=== PATIENT | male | born 1940 | race Caucasian/White ===

== ENCOUNTER 2019-02-23 12:26 | Inpatient (IN) ==
[2019-02-23] MEDS ORDERED: Isovue-370 500 ML BOTTLE IVP ONE (12:50)
[2019-02-23] MEDS ORDERED: 0.9 % Sodium Chloride 1,000 ML IVC ONE (13:08)
[2019-02-23] MEDS ORDERED: *HR* FentaNYL (PF) 100 MCG/2 ML VIAL IVP ONE (13:08)
[2019-02-23] MEDS ORDERED: Ondansetron 4 MG/2 ML VIAL IVP ONE (13:08)
[2019-02-23 13:29] LABS: Bilirubin,Urine Moderate (Negative); Blood,Urine Negative (Negative); Clarity,Urine Clear (Clear); Color,Urine Dark Yellow (Yellow); Glucose,Urine (UA) Normal (Normal); Ketones,Urine Negative (Negative); Leukocyte Esterase,Urine Trace (Negative); Nitrite,Urine Negative (Negative); Protein,Urine Trace mg/dL (Neg-Trace); Specific Gravity,Urine 1.019 (1.010-1.025)
[2019-02-23 13:31] LABS: Bacteria,Urine None Seen per hpf (None-Few); Hyaline Casts,Urine None Seen per lpf (None-Few); RBC,Urine 0-3 per hpf (0-3); Squamous Epithelial Cell,Urine Few per lpf (None-Few); WBC,Urine 0-3 per hpf (0-3)
[2019-02-23 13:48] LABS: Basophils % 0.4 %; Eosinophils # 0.1 K/mcL (0.0-0.6); Eosinophils % 1.2 %; Hematocrit 37.1 % (37.5-50.1); Hemoglobin 12.2 g/dL (12.9-16.9); Immature Granulocytes % 0.8 % (0-4); Lymphocytes # 0.8 K/mcL (0.6-4.6); Lymphocytes % 9.1 %; Mean Corpuscular HGB Conc 32.9 g/dL (31.6-35.5); Mean Corpuscular Hemoglobin 28.7 pg (28.0-33.3); Mean Corpuscular Volume 87.3 fL (83.0-100.0); Mean Platelet Volume 11.2 fL (9.4-12.4); Monocytes # 0.6 K/mcL (0.0-1.3); Monocytes % 7.1 %; Neutrophils # 7.2 K/mcL (1.6-8.9); Platelet Count 178 K/mcL (140-400); Red Blood Count 4.25 M/mcL (4.19-5.50); Red Cell Distribution Width 15.9 % (11.5-14.5); Segmented Neutrophils % 81.4 %; White Blood Count 8.9 K/mcL (4.3-11.1)
[2019-02-23 14:15] LABS: Albumin 3.6 g/dL (3.5-5.7); Bilirubin,Direct 4.2 mg/dL (0.0-0.2); Bilirubin,Indirect 2.2 mg/dL (0.0-1.2); Bilirubin,Total 6.4 mg/dL (0.3-1.0); Calcium 9.6 mg/dL (8.6-10.3); Globulin 3.5 g/dL (2.4-3.5); Potassium 3.8 mEq/L (3.5-5.1); Total Protein 7.1 g/dL (6.4-8.9)
--- NOTE | 2019-02-23 14:50 | Emergency Department Note ---
Disposition Clinical Impression: Abdominal pain, Hyperbilirubinemia, Metastatic cancer Disposition: Admitted As Inpatient Condition: Fair Referrals: Tarsha Jacome MD [Primary Care Provider] - Forms: ED Satisfaction Letter, Work/School Release Time of Disposition: 16:22 Abdominal Pain HPI - General Chief Complaint: ED Abdominal Pain Stated Complaint: abd pain Time Seen by Provider: 02/23/19 12:49 Source: patient Mode of arrival: ambulatory Limitations: no limitations Nursing Notes Reviewed: Yes Vital Signs Reviewed: Yes - History of Present Illness Pain Scale: 6 - Related Data Home Medications Medication Instructions Recorded Confirmed Allopurinol [Zyloprim 300 MG] 300 mg PO DAILY 10/11/18 11/16/18 Amiloride/Hydrochlorothiazide 1 tab PO DAILY 10/11/18 11/16/18 [Amiloride HCl-Hctz 5-50 mg Tab] Aspirin 81 mg PO DAILY 10/11/18 11/16/18 Cholecalciferol (Vitamin D3) 2,000 unit PO DAILY 10/11/18 11/16/18 [Vitamin D3] Fluticasone Propionate Nasal 1 spray NS DAILY 10/11/18 11/16/18 [Flonase] Glycerin/Propylene Glycol 1 drop BOTH EYES DAILY PRN 10/11/18 11/16/18 [Artificial Tears Drops] Lisinopril [Zestril] 20 mg PO QPM 10/11/18 11/16/18 Nitroglycerin [Nitrostat] 0.4 mg SL Q5M PRN 10/11/18 11/16/18 HYDROcodone/Acet 5/325 mg [[place] 1 tab PO Q6H PRN 11/16/18 11/16/18 5-325 mg] Previous Rx's Medication Instructions Recorded Atorvastatin [Lipitor] 40 mg PO HS #30 tablet 10/17/18 Carvedilol [Coreg] 6.25 mg PO BIDWM #60 tablet 10/17/18 Famotidine [Pepcid] 20 mg PO BID #60 tablet 10/24/18 Ferrous Sulfate [Iron] 325 mg PO DAILY #30 tablet 11/16/18 Allergies Allergy/AdvReac Type Severity Reaction Status Date / Time adhesive tape Allergy Rash Verified 11/16/18 14:32 Diclofenac [From Arthrotec] Allergy swelling Verified 11/16/18 14:32 diltiazem Allergy See Verified 11/16/18 14:32 Comments Latex, Natural Rubber Allergy SEE COMMENT Verified 11/16/18 14:32 misoprostol [From Arthrotec] Allergy swelling Verified 11/16/18 14:32 nabumetone Allergy See Verified 11/16/18 14:32 Comments NSAIDS (Non-Steroidal Allergy See Verified 11/16/18 14:32 Anti-Inflamma Comments Abdominal Pain PMH - Past Medical History Medical history: Reports: arthritis, cancer, coronary artery disease, DVT, hypertension Male Surgical History: Reports: cancer surgery, other Psychiatric history: Reports: no psych history - Social History Smoking status: Former smoker Alcohol use: Reports: none Drug use: Reports: none Course Vital Signs Temperature 98.1 F 02/23/19 12:36 Pulse Rate 98 02/23/19 12:36 Respiratory Rate 18 02/23/19 12:36 Blood Pressure 144/71 02/23/19 12:36 O2 Sat by Pulse Oximetry 96 02/23/19 12:36 Temperature 98.1 F 02/23/19 13:21 Pulse Rate 80 02/23/19 14:27 Respiratory Rate 18 02/23/19 13:21 Blood Pressure 149/69 02/23/19 14:27 O2 Sat by Pulse Oximetry 100 02/23/19 14:27 Oxygen Delivery Oxygen Delivery Room Air Abdominal Pain - Lab Data Result diagrams: 02/23/19 13:19 02/23/19 13:19 Lab Results 02/23/19 02/23/19 02/23/19 Range/Units 12:54 13:19 13:19 WBC 8.9 (4.3-11.1) K/mcL RBC 4.25 (4.19-5.50) M/mcL Hgb 12.2 L (12.9-16.9) g/dL Hct 37.1 L (37.5-50.1) % MCV 87.3 (83.0-100.0) fL MCH 28.7 (28.0-33.3) pg MCHC 32.9 (31.6-35.5) g/dL RDW 15.9 H (11.5-14.5) % Plt Count 178 (140-400) K/mcL MPV 11.2 (9.4-12.4) fL Immature Gran % 0.8 (0-4) % Seg Neutrophils % 81.4 % Lymphocytes % 9.1 % Monocytes % 7.1 % Eosinophils % 1.2 % Basophils % 0.4 % Neutrophils # 7.2 (1.6-8.9) K/mcL Lymphocytes # 0.8 (0.6-4.6) K/mcL Monocytes # 0.6 (0.0-1.3) K/mcL Eosinophils # 0.1 (0.0-0.6) K/mcL Basophils # 0.0 (0.0-0.2) K/mcL Sodium 133 L (136-145) mEq/L Potassium 3.8 (3.5-5.1) mEq/L Chloride 98 (98-107) mEq/L Carbon Dioxide 27 (23-29) mEq/L BUN 27 H (8-23) mg/dL Creatinine 1.57 H (0.70-1.30) mg/dL Est GFR ( Amer) 52 L (> 60) Est GFR (Non-Af Amer) 43 L (> 60) BUN/Creatinine Ratio 17 (6-26) Glucose 165 H (70-105) mg/dL Calculated Osmolality 285 (280-300) Calcium 9.6 (8.6-10.3) mg/dL Total Bilirubin 6.4 H (0.3-1.0) mg/dL Direct Bilirubin 4.2 H (0.0-0.2) mg/dL Indirect Bilirubin 2.2 H (0.0-1.2) mg/dL AST 169 H (13-39) Units/L ALT 358 H (7-52) Units/L Alkaline Phosphatase 243 H (34-104) Units/L Serum Total Protein 7.1 (6.4-8.9) g/dL Albumin 3.6 (3.5-5.7) g/dL Globulin 3.5 (2.4-3.5) g/dL Albumin/Globulin Ratio 1.0 L (1.1-2.2) Lipase 76 (11-82) Units/L Urine Color Dark Yellow (Yellow) Urine Clarity Clear (Clear) Urine pH 7.0 (5.0-8.0) pH Units Ur Specific [place] 1.019 (1.010-1.025) Urine Protein Trace (Neg-Trace) mg/dL Urine Glucose (UA) Normal (Normal) mg/dL Urine Ketones Negative (Negative) mg/dL Urine Blood Negative (Negative) Urine Nitrite Negative (Negative) Urine Bilirubin Moderate H (Negative) Urine Urobilinogen 2.0 H (Normal) mg/dL Ur Leukocyte Esterase Trace H (Negative) Urine Microscopic RBC 0-3 (0-3) per hpf Urine Microscopic WBC 0-3 (0-3) per hpf Ur Squamous Epith Cells Few (None-Few) per lpf Urine Bacteria None Seen (None-Few) per hpf Hyaline Casts None Seen (None-Few) per lpf Ur Culture Indicated? YES A (NO) Attestation Statement - Attestation Attestation: I have seen this patient with the resident physician, I have personally evaluated this patient. I had reviewed the chart and document dictation by the resident physician and aM in agreement with the information documented by the resident physician. Please see documentation by the resident physician for com plete chart including past medical history, family medical history, review of systems, current history and physical and laboratory and imaging studies. I was present for all procedures, provided direct supervision for all procedures, was present for the entirety of all procedures and provided direct guidance during the procedures. Please see documentation by the resident physician for any procedures performed. I have reviewed all interpretations of EKGs, and reviewed all EKGs performed on patient's as well. I have also reviewed reports of imaging as provided by radiology. Patient presented emergency department with chief complaint of progressively increasing abdominal pain. The patient states that he had a liver biopsy done or days ago he states that ever since then he has had progressively increasing upper abdominal pain nausea vomiting he has not had a bowel movement and has not really been passing gas and he does not feel well. He feels a little bit dizzy he feels nauseated no actual vomiting no blood per rectum. Denies headache neck pain chest pain or shortness of breath. Denies fevers or chills or urinary symptoms. Upon presentation he is alert and oriented, he is uncomfortable in appearance but nontoxic in appearance. Vital signs within acceptable limits. Cranial nerves are intact. Lungs are clear heart is regular. Midline chest incision from prior bypass appears healthy. Abdomen is soft, nondistended, hypoactive bowel sounds, slightly tympanitic, there is moderate right upper and epigastric tenderness no ecchymosis on the abdomen. No obvious palpable or pulsatile masses. Skin is warm dry without rash or petechiae, however he does appear to have scleral icterus. Patient had an IV placed, was given IV fluids IV pain medication IV nausea medication laboratory studies and a CT scan of the abdomen and pelvis were ordered immediately upon arrival. Basic laboratory studies were within acceptable limits except for mild transaminitis and also new hyperbilirubinemia of 6.4 from 0.9 from within the last 1-[address] scan of the abdomen and pelvis showed no evidence of subcapsular hematoma or bleeding, but increased tumor burden, as well as some new sludge within the gallbladder but no paranoid cholecystic fluid IMPRESSION: 1. Worsening metastatic disease manifested by increase in size and number of hepatic metastatic lesions as well as peripancreatic lymphadenopathy. 2. The redemonstration of no pancreatic body/tail mass. 3. Trace bilateral pleural effusions. 4. Subpleural 1.8 x 0.8 cm inferior lingular nodule is not present on the CT chest from 2013. Patient will be admitted to the hospital for further evaluation and management and pain control and with consideration of ERCP or MRCP secondary to increased mass and now with hyperbilirubinemia.
--- NOTE | 2019-02-23 16:18 | Emergency Department Note ---
Disposition Clinical Impression: Hyperbilirubinemia, Metastatic cancer, Elevated transaminase level Abdominal pain Qualifiers: Abdominal location: generalized Qualified Code(s): R10.84 - Generalized abdominal pain Disposition: Admitted As Inpatient Condition: Fair Referrals: Tarsha Jacome MD [Primary Care Provider] - Forms: ED Satisfaction Letter, Work/School Release Time of Disposition: 16:26 General Adult HPI - General Chief complaint: ED Abdominal Pain Stated complaint: abd pain Time Seen by Provider: 02/23/19 12:49 Source: patient Mode of arrival: ambulatory Limitations: no limitations Nursing Notes Reviewed: Yes Vital Signs Reviewed: Yes - History of Present Illness HPI Narrative: Patient is a 78-year-old male with past medical history of CAD with stent placement (10/28) 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 Pain Scale: 6 - Related Data Home Medications Medication Instructions Recorded Confirmed Allopurinol [Zyloprim 300 MG] 300 mg PO DAILY 10/11/18 11/16/18 Amiloride/Hydrochlorothiazide 1 tab PO DAILY 10/11/18 11/16/18 [Amiloride HCl-Hctz 5-50 mg Tab] Aspirin 81 mg PO DAILY 10/11/18 11/16/18 Cholecalciferol (Vitamin D3) 2,000 unit PO DAILY 10/11/18 11/16/18 [Vitamin D3] Fluticasone Propionate Nasal 1 spray NS DAILY 10/11/18 11/16/18 [Flonase] Glycerin/Propylene Glycol 1 drop BOTH EYES DAILY PRN 10/11/18 11/16/18 [Artificial Tears Drops] Lisinopril [Zestril] 20 mg PO QPM 10/11/18 11/16/18 Nitroglycerin [Nitrostat] 0.4 mg SL Q5M PRN 10/11/18 11/16/18 HYDROcodone/Acet 5/325 mg [[place] 1 tab PO Q6H PRN 11/16/18 11/16/18 5-325 mg] Previous Rx's Medication Instructions Recorded Atorvastatin [Lipitor] 40 mg PO HS #30 tablet 10/17/18 Carvedilol [Coreg] 6.25 mg PO BIDWM #60 tablet 10/17/18 Famotidine [Pepcid] 20 mg PO BID #60 tablet 10/24/18 Ferrous Sulfate [Iron] 325 mg PO DAILY #30 tablet 11/16/18 Allergies Allergy/AdvReac Type Severity Reaction Status Date / Time adhesive tape Allergy Rash Verified 11/16/18 14:32 Diclofenac [From Arthrotec] Allergy swelling Verified 11/16/18 14:32 diltiazem Allergy See Verified 11/16/18 14:32 Comments Latex, Natural Rubber Allergy SEE COMMENT Verified 11/16/18 14:32 misoprostol [From Arthrotec] Allergy swelling Verified 11/16/18 14:32 nabumetone Allergy See Verified 11/16/18 14:32 Comments NSAIDS (Non-Steroidal Allergy See Verified 11/16/18 14:32 Anti-Inflamma Comments Past Medical History - Past Medical History Medical history: Reports: arthritis, cancer, coronary artery disease, DVT, hypertension Surgical history: Reports: cancer surgery, cataract, hip replacement, IVC Filter, orthopedic, other, other Psychiatric history: Reports: no psych history - Social History Smoking Status: Former smoker Smokeless Tobacco Status: No Alcohol use: Reports: none Drug use: Reports: none Physical Exam - General Limitations: no limitations Course Vital Signs Temperature 98.1 F 02/23/19 12:36 Pulse Rate 98 02/23/19 12:36 Respiratory Rate 18 02/23/19 12:36 Blood Pressure 144/71 02/23/19 12:36 O2 Sat by Pulse Oximetry 96 02/23/19 12:36 Temperature 98.1 F 02/23/19 13:21 Pulse Rate 80 02/23/19 14:27 Respiratory Rate 18 02/23/19 13:21 Blood Pressure 149/69 02/23/19 14:27 O2 Sat by Pulse Oximetry 100 02/23/19 14:27 Oxygen Delivery Oxygen Delivery Room Air Medical Decision Making - Medical Records Medical records reviewed: Yes I reviewed the patient's medical records. - Lab Data Lab results reviewed: Yes I reviewed the patient's lab results. Result diagrams: 02/23/19 13:19 02/23/19 13:19 Lab Results 02/23/19 02/23/19 02/23/19 Range/Units 12:54 13:19 13:19 WBC 8.9 (4.3-11.1) K/mcL RBC 4.25 (4.19-5.50) M/mcL Hgb 12.2 L (12.9-16.9) g/dL Hct 37.1 L (37.5-50.1) % MCV 87.3 (83.0-100.0) fL MCH 28.7 (28.0-33.3) pg MCHC 32.9 (31.6-35.5) g/dL RDW 15.9 H (11.5-14.5) % Plt Count 178 (140-400) K/mcL MPV 11.2 (9.4-12.4) fL Immature Gran % 0.8 (0-4) % Seg Neutrophils % 81.4 % Lymphocytes % 9.1 % Monocytes % 7.1 % Eosinophils % 1.2 % Basophils % 0.4 % Neutrophils # 7.2 (1.6-8.9) K/mcL Lymphocytes # 0.8 (0.6-4.6) K/mcL Monocytes # 0.6 (0.0-1.3) K/mcL Eosinophils # 0.1 (0.0-0.6) K/mcL Basophils # 0.0 (0.0-0.2) K/mcL Sodium 133 L (136-145) mEq/L Potassium 3.8 (3.5-5.1) mEq/L Chloride 98 (98-107) mEq/L Carbon Dioxide 27 (23-29) mEq/L BUN 27 H (8-23) mg/dL Creatinine 1.57 H (0.70-1.30) mg/dL Est GFR ( Amer) 52 L (> 60) Est GFR (Non-Af Amer) 43 L (> 60) BUN/Creatinine Ratio 17 (6-26) Glucose 165 H (70-105) mg/dL Calculated Osmolality 285 (280-300) Calcium 9.6 (8.6-10.3) mg/dL Total Bilirubin 6.4 H (0.3-1.0) mg/dL Direct Bilirubin 4.2 H (0.0-0.2) mg/dL Indirect Bilirubin 2.2 H (0.0-1.2) mg/dL AST 169 H (13-39) Units/L ALT 358 H (7-52) Units/L Alkaline Phosphatase 243 H (34-104) Units/L Serum Total Protein 7.1 (6.4-8.9) g/dL Albumin 3.6 (3.5-5.7) g/dL Globulin 3.5 (2.4-3.5) g/dL Albumin/Globulin Ratio 1.0 L (1.1-2.2) Lipase 76 (11-82) Units/L Urine Color Dark Yellow (Yellow) Urine Clarity Clear (Clear) Urine pH 7.0 (5.0-8.0) pH Units Ur Specific [place] 1.019 (1.010-1.025) Urine Protein Trace (Neg-Trace) mg/dL Urine Glucose (UA) Normal (Normal) mg/dL Urine Ketones Negative (Negative) mg/dL Urine Blood Negative (Negative) Urine Nitrite Negative (Negative) Urine Bilirubin Moderate H (Negative) Urine Urobilinogen 2.0 H (Normal) mg/dL Ur Leukocyte Esterase Trace H (Negative) Urine Microscopic RBC 0-3 (0-3) per hpf Urine Microscopic WBC 0-3 (0-3) per hpf Ur Squamous Epith Cells Few (None-Few) per lpf Urine Bacteria None Seen (None-Few) per hpf Hyaline Casts None Seen (None-Few) per lpf Ur Culture Indicated? YES A (NO) - Radiology Data Radiology results reviewed: Yes I reviewed the patient's radiology results. Abdomen/Pelvis CT 02/23/19 12:50 IMPRESSION: 1. Worsening metastatic disease manifested by increase in size and number of hepatic metastatic lesions as well as peripancreatic lymphadenopathy. 2. The redemonstration of no pancreatic body/tail mass. 3. Trace bilateral pleural effusions. 4. Subpleural 1.8 x 0.8 cm inferior lingular nodule is not present on the CT chest from 2013. D/ / Obed Mijares MD / Obed Mijares MD Interpreting Provider: Obed Mijares MD
--- NOTE | 2019-02-23 16:19 | Emergency Department Note ---
Disposition Referrals: Tarsha Jacome MD [Primary Care Provider] - Forms: ED Satisfaction Letter, Work/School Release Abdominal Pain HPI - General Chief Complaint: ED Abdominal Pain Stated Complaint: abd pain Time Seen by Provider: 02/23/19 12:49 Source: patient Mode of arrival: ambulatory Limitations: no limitations Nursing Notes Reviewed: Yes Vital Signs Reviewed: Yes - History of Present Illness Pain Scale: 6 - Related Data Home Medications Medication Instructions Recorded Confirmed Allopurinol [Zyloprim 300 MG] 300 mg PO DAILY 10/11/18 11/16/18 Amiloride/Hydrochlorothiazide 1 tab PO DAILY 10/11/18 11/16/18 [Amiloride HCl-Hctz 5-50 mg Tab] Aspirin 81 mg PO DAILY 10/11/18 11/16/18 Cholecalciferol (Vitamin D3) 2,000 unit PO DAILY 10/11/18 11/16/18 [Vitamin D3] Fluticasone Propionate Nasal 1 spray NS DAILY 10/11/18 11/16/18 [Flonase] Glycerin/Propylene Glycol 1 drop BOTH EYES DAILY PRN 10/11/18 11/16/18 [Artificial Tears Drops] Lisinopril [Zestril] 20 mg PO QPM 10/11/18 11/16/18 Nitroglycerin [Nitrostat] 0.4 mg SL Q5M PRN 10/11/18 11/16/18 HYDROcodone/Acet 5/325 mg [[place] 1 tab PO Q6H PRN 11/16/18 11/16/18 5-325 mg] Previous Rx's Medication Instructions Recorded Atorvastatin [Lipitor] 40 mg PO HS #30 tablet 10/17/18 Carvedilol [Coreg] 6.25 mg PO BIDWM #60 tablet 10/17/18 Famotidine [Pepcid] 20 mg PO BID #60 tablet 10/24/18 Ferrous Sulfate [Iron] 325 mg PO DAILY #30 tablet 11/16/18 Allergies Allergy/AdvReac Type Severity Reaction Status Date / Time adhesive tape Allergy Rash Verified 11/16/18 14:32 Diclofenac [From Arthrotec] Allergy swelling Verified 11/16/18 14:32 diltiazem Allergy See Verified 11/16/18 14:32 Comments Latex, Natural Rubber Allergy SEE COMMENT Verified 11/16/18 14:32 misoprostol [From Arthrotec] Allergy swelling Verified 11/16/18 14:32 nabumetone Allergy See Verified 11/16/18 14:32 Comments NSAIDS (Non-Steroidal Allergy See Verified 11/16/18 14:32 Anti-Inflamma Comments All systems ED: reviewed and negative except as stated. Review of Systems: As Per HPI Abdominal Pain PMH - Past Medical History Medical history: Reports: arthritis, cancer, coronary artery disease, DVT, hyper tension Male Surgical History: Reports: cancer surgery, other Psychiatric history: Reports: no psych history - Social History Smoking status: Former smoker Alcohol use: Reports: none Drug use: Reports: none Physical Exam - General Limitations: no limitations Course Vital Signs Temperature 98.1 F 02/23/19 12:36 Pulse Rate 98 02/23/19 12:36 Respiratory Rate 18 02/23/19 12:36 Blood Pressure 144/71 02/23/19 12:36 O2 Sat by Pulse Oximetry 96 02/23/19 12:36 Temperature 98.1 F 02/23/19 13:21 Pulse Rate 80 02/23/19 14:27 Respiratory Rate 18 02/23/19 13:21 Blood Pressure 149/69 02/23/19 14:27 O2 Sat by Pulse Oximetry 100 02/23/19 14:27 Oxygen Delivery Oxygen Delivery Room Air Abdominal Pain - Lab Data Result diagrams: 02/23/19 13:19 02/23/19 13:19 Lab Results 02/23/19 02/23/19 02/23/19 Range/Units 12:54 13:19 13:19 WBC 8.9 (4.3-11.1) K/mcL RBC 4.25 (4.19-5.50) M/mcL Hgb 12.2 L (12.9-16.9) g/dL Hct 37.1 L (37.5-50.1) % MCV 87.3 (83.0-100.0) fL MCH 28.7 (28.0-33.3) pg MCHC 32.9 (31.6-35.5) g/dL RDW 15.9 H (11.5-14.5) % Plt Count 178 (140-400) K/mcL MPV 11.2 (9.4-12.4) fL Immature Gran % 0.8 (0-4) % Seg Neutrophils % 81.4 % Lymphocytes % 9.1 % Monocytes % 7.1 % Eosinophils % 1.2 % Basophils % 0.4 % Neutrophils # 7.2 (1.6-8.9) K/mcL Lymphocytes # 0.8 (0.6-4.6) K/mcL Monocytes # 0.6 (0.0-1.3) K/mcL Eosinophils # 0.1 (0.0-0.6) K/mcL Basophils # 0.0 (0.0-0.2) K/mcL Sodium 133 L (136-145) mEq/L Potassium 3.8 (3.5-5.1) mEq/L Chloride 98 (98-107) mEq/L Carbon Dioxide 27 (23-29) mEq/L BUN 27 H (8-23) mg/dL Creatinine 1.57 H (0.70-1.30) mg/dL Est GFR ( Amer) 52 L (> 60) Est GFR (Non-Af Amer) 43 L (> 60) BUN/Creatinine Ratio 17 (6-26) Glucose 165 H (70-105) mg/dL Calculated Osmolality 285 (280-300) Calcium 9.6 (8.6-10.3) mg/dL Total Bilirubin 6.4 H (0.3-1.0) mg/dL Direct Bilirubin 4.2 H (0.0-0.2) mg/dL Indirect Bilirubin 2.2 H (0.0-1.2) mg/dL AST 169 H (13-39) Units/L ALT 358 H (7-52) Units/L Alkaline Phosphatase 243 H (34-104) Units/L Serum Total Protein 7.1 (6.4-8.9) g/dL Albumin 3.6 (3.5-5.7) g/dL Globulin 3.5 (2.4-3.5) g/dL Albumin/Globulin Ratio 1.0 L (1.1-2.2) Lipase 76 (11-82) Units/L Urine Color Dark Yellow (Yellow) Urine Clarity Clear (Clear) Urine pH 7.0 (5.0-8.0) pH Units Ur Specific [place] 1.019 (1.010-1.025) Urine Protein Trace (Neg-Trace) mg/dL Urine Glucose (UA) Normal (Normal) mg/dL Urine Ketones Negative (Negative) mg/dL Urine Blood Negative (Negative) Urine Nitrite Negative (Negative) Urine Bilirubin Moderate H (Negative) Urine Urobilinogen 2.0 H (Normal) mg/dL Ur Leukocyte Esterase Trace H (Negative) Urine Microscopic RBC 0-3 (0-3) per hpf Urine Microscopic WBC 0-3 (0-3) per hpf Ur Squamous Epith Cells Few (None-Few) per lpf Urine Bacteria None Seen (None-Few) per hpf Hyaline Casts None Seen (None-Few) per lpf Ur Culture Indicated? YES A (NO) Attestation Statement - Attestation Attestation: I have seen this patient with the resident physician, I have personally evaluated this patient. I had reviewed the chart and document dictation by the resident physician and aM in agreement with the information documented by the resident physician. Please see documentation by the resident physician for complete chart including past medical history, family medical history, review of systems, current history and physical and laboratory and imaging studies. I was present for all procedures, provided direct supervision for all procedures, was present for the entirety of all procedures and provided direct guidance during the procedures. Please see documentation by the resident physician for any procedures performed. I have reviewed all interpretations of EKGs, and reviewed all EKGs performed on patient's as well. I have also reviewed reports of imaging as provided by radiology. Patient presented emergency room with progressively increasing right upper quadrant epigastric pain
[2019-02-23] MEDS ORDERED: Ondansetron 4 MG/2 ML VIAL IVP PRN (17:57)
[2019-02-23] MEDS ORDERED: *HR* OxyCODONE Immed Rel 5 MG TABLET PO PRN (17:57)
[2019-02-23] MEDS ORDERED: Naloxone 0.4 MG/ML INJ IVP PRN (17:57)
[2019-02-23] MEDS ORDERED: *HR* HYDROmorphone (PF) 1 MG/ML SYRINGE IVP PRN (18:01)
--- NOTE | 2019-02-23 18:17 | Internal Med History&Physical ---
Date of Encounter: 02/23/19 Time of Encounter: 17:00 Internal Medicine - H&P: HPI Chief complaint: Abdominal pain Admitted From: Emergency Dept Plans for Post Hospital Care: Home History of present illness: Mr. Schwartz is a 78 year old male with prior history of prostate cancer, renal cell carcinoma status post right nephrectomy currently being worked up for possible metastatic pancreatic cancer who was sent in by his PCP to the ED to be evaluated for acute on chronic abdominal pain. The patient stated that the pain is sharp constant at the mid - lower bilateral quadrants of his abdomen denies any right upper quadrant pain. The pain was associated with nausea vomiting and anorexia stated he is unable to keep up with his oral intake. The patient did state that he had a recent liver biopsy on 02/20/2019 but stated that his abdominal pain has been persistent for over a month although with acute worsening over the past 24 hours. He denies any fevers chills or rigors and his was at his bedside mentioned that the patient urine has been quite discolored and appears jaundice. Upon review of his outpatient oncology office notes patient was seen on 11/16/2018, according to the notes patient had prostate cancer in 1995, renal cell cancer T3a Nx Mo stage III in 2010, left leg DVT 2013 hours for Coumadin for 6 months and is status post IVC filter August 2014 and has been off Coumadin therapy. Patient also endorse a history of recent coronary artery bypass graft in October 2018. Among his workup by the ED was a CMP which revealed elevated liver enzymes including total direct and indirect bilirubin, unremarkable CBC however mild hyponatremia noted. Urinalysis was significant for urobilinogen and urine bilirubin and his CT scan of the abdomen and pelvis without contrast revealed worsening metastatic disease manifested by increasing in size and number of hepatic metastatic lesions as well as carli-pancreatic lymphadenopathy. Past Med Surg Social Fam HX - Past Medical History Medical history: arthritis, cancer, coronary artery disease, DVT, hypertension Additional medical history: prostate cancer-removed. Kidney cancer (right)- removed. neuropathy. SLEEP APNEA Psychiatric history: no psych history - Past Surgical History Surgical History: cancer surgery, prostatectomy Additional surgical history: PROSTATE AND KIDNEY CANCER SURGERY. right hip replacement and. right leg surgery. IVC FILTER - Social History Smoking Status: Former smoker Smokeless Tobacco Status: No Alcohol use: none Drug use: none - Family History Father Living Status: Internal Medicine - H&P: Meds Allopurinol [Zyloprim 300 MG] 300 mg PO DAILY 10/11/18 [History] Amiloride/Hydrochlorothiazide [Amiloride HCl-Hctz 5-50 mg Tab] 1 tab PO DAILY 10/11/18 [History] Cholecalciferol (Vitamin D3) [Vitamin D3] 2,000 unit PO DAILY 10/11/18 [History] Lisinopril [Zestril] 20 mg PO QPM 10/11/18 [History] Carvedilol [Coreg] 3.125 mg PO BIDWM 02/23/19 [History] Clopidogrel [Plavix] 75 mg PO DAILY 02/23/19 [History] Docusate Sodium [Stool Softener] 100 mg PO DAILY 02/23/19 [History] Ondansetron [Zofran ODT] 8 mg SL Q8H PRN 02/23/19 [History] Pantoprazole Sodium [Protonix] 40 mg PO PRN PRN 02/23/19 [History] Allergy/AdvReac Type Severity Reaction Status Date / Time adhesive tape Allergy Rash Verified 11/16/18 14:32 Diclofenac [From Arthrotec] Allergy swelling Verified 11/16/18 14:32 diltiazem Allergy See Verified 11/16/18 14:32 Comments Latex, Natural Rubber Allergy SEE COMMENT Verified 11/16/18 14:32 misoprostol [From Arthrotec] Allergy swelling Verified 11/16/18 14:32 nabumetone Allergy See Verified 11/16/18 14:32 Comments NSAIDS (Non-Steroidal Allergy See Verified 11/16/18 14:32 Anti-Inflamma Comments All Systems PM: A 10-system review of systems was performed and is negative for pertinent findings except as documented above in the HPI. Review of systems: GENERAL: Denies fever, chills, fatigue or night sweats. DERMATOLOGIC: Denies itch, rash or lesions HEENT: Denies headache, blurriness, diplopia or decreased visual acuity, ear pain, tinnitus, rhinorrhea, sinus tenderness or sore throat RESPIRATORY: Denies SOB, cough, hemoptysis or pleuritic chest pain CARDIOVASCULAR: Denies chest pain, LE edema, palpitation or syncope GASTRO INTESTINAL: Reports abdomen cramps, nausea/vomiting, denies diarrhea or constipation, melena MUSCULOSKELATAL: Denies muscle pain/weakness, joint tenderness/pain or swelling PSYCH: Denies worsening anxiety, or depression NEURO: Denies vertigo, dizziness, or ataxia GENITURINARY: Denies dysuria, nocturia or urinary incontinence - Constitutional Vitals: Temp Pulse Resp BP Pulse Ox 98.1 F 80 18 149/69 100 02/23/19 13:21 02/23/19 14:27 02/23/19 13:21 02/23/19 14:27 02/23/19 14:27 Exam: GENERAL: NAD, A&O x3, pleasant and conversant, at his bedside SKIN: Slightly jaundice, otherwise warm and dry EYES: EOMI, PERRLA, no sclera icterus HENT: Head atraumatic, no facial asymmetry, frontal and maxillary sinus non- tender, normal hearing, oropharynx and mucosa moist and without any exudates NECK: No cervical lymphadenopathy, trachea midline, thyroid is palpable does not appear enlarged LUNGS: vesicular breath sounds, clear to auscultation, no wheeze, rhonchi, rales or crackles. Non labored respirations HEART: Normal rate and rhythm, grade 3/6 systolic murmur appreciated ABDOMEN: Obese soft, mid epigastric and bilateral lower quadrant tenderness noted with no rebound or guarding, non-distended, bowel sounds x 4 normoactive EXTRMITIES: No LE asymmetry, No LE edema, pedal pulses 1+ and radial pulses 2 + and equal bilaterally NEURO: Speech and comprehension appears intact. PSYCH: Cooperative, non- anxious or irritable, mood and affect is appropriate Internal Med - H&P Results - Labs CBC & Chem 7: 02/23/19 13:19 02/23/19 13:19 Labs: Short CBC 02/23/19 Range/Units 13:19 WBC 8.9 (4.3-11.1) K/mcL Hgb 12.2 L (12.9-16.9) g/dL Hct 37.1 L (37.5-50.1) % Plt Count 178 (140-400) K/mcL Neutrophils # 7.2 (1.6-8.9) K/mcL BMP 02/23/19 13:19 Sodium 133 L Potassium 3.8 Chloride 98 Carbon Dioxide 27 BUN 27 H Creatinine 1.57 H Glucose 165 H Calcium 9.6 Liver Function 02/23/19 Range/Units 13:19 Total Bilirubin 6.4 H (0.3-1.0) mg/dL Direct Bilirubin 4.2 H (0.0-0.2) mg/dL AST 169 H (13-39) Units/L ALT 358 H (7-52) Units/L Alkaline Phosphatase 243 H (34-104) Units/L Albumin 3.6 (3.5-5.7) g/dL Urine 02/23/19 Range/Units 12:54 Urine Color Dark Yellow (Yellow) Urine Clarity Clear (Clear) Urine pH 7.0 (5.0-8.0) pH Units Ur Specific [place] 1.019 (1.010-1.025) Urine Protein Trace (Neg-Trace) mg/dL Urine Glucose (UA) Normal (Normal) mg/dL - Impressions ITS Impressions Abdomen/Pelvis CT 02/23/19 12:50 IMPRESSION: 1. Worsening metastatic disease manifested by increase in size and number of hepatic metastatic lesions as well as peripancreatic lymphadenopathy. 2. The redemonstration of no pancreatic body/tail mass. 3. Trace bilateral pleural effusions. 4. Subpleural 1.8 x 0.8 cm inferior lingular nodule is not present on the CT chest from 2013. D/ / Obed Mijares MD / Obed Mijares MD Interpreting Provider: Obed Mijares MD - Assessment and Plan (1) Metastatic cancer Current Visit: Yes Status: Acute Assessment and plan: CT scan is suggestive of metastatic cancer with increase in size and number of liver lesions, is status post liver biopsy 02/20/2019- biopsy results still pending, patient is status post PET CT 01/19/2019 which revealed intensely hypermetabolic mass in the body and tail of the pancreas with multiple hyper metabolic metastatic lesions throughout the liver. Patient already been worked up for possible pancreatic cancer established with the [place] oncologist- consult pending. Goals of care discussion was brought up with the patient and his with advanced directive. He will like to remain full code, and interested in chemotherapy. (2) Hyperbilirubinemia Current Visit: Yes Status: Acute Assessment and plan: Likely due to metastatic lesions in the liver, we will trend LFTs (3) Elevated transaminase level Current Visit: Yes Status: Acute Assessment and plan: Likely secondary to metastatic lesions in the liver will trend LFTs (4) Acute kidney injury Current Visit: Yes Status: Acute Assessment and plan: History of CKD, serum creatinine January 2019 was 1.2, today of present admission is 1.57 we will start gentle hydration (5) Abdominal pain Current Visit: Yes Status: Acute Assessment and plan: Likely secondary to metastatic liver lesion given his elevated LFTs we will refrain from acetaminophen products. We will treat with oxycodone and may use breakthrough hydromorphone as needed if unable to tolerate oral narcotics Qualifiers: Abdominal location: generalized Qualified Code(s): R10.84 - Generalized abdominal pain (6) CAD (coronary artery disease) Current Visit: Yes Status: Acute Assessment and plan: Status post CABG in October 2018, on lisinopril which is currently being held due to his RACHNA, carvedilol and Plavix Qualifiers: Coronary Disease-Associated Artery/Lesion type: bypass graft [place] vs. transplanted heart: [place] heart Associated angina: without angina Qualified Code(s): I25.810 - Atherosclerosis of coronary artery bypass graft(s) without angina pectoris (7) Acute hyponatremia Current Visit: Yes Status: Acute Assessment and plan: Likely secondary to poor oral intake was 133 he is euvolemic anticipated to improve as his oral intake improves (8) Hypertension Current Visit: Yes Status: Acute Qualifiers: Hypertension type: essential hypertension Qualified Code(s): I10 - Essential (primary) hypertension (9) DVT prophylaxis Current Visit: Yes Status: Acute Assessment and plan: High risk for DVTs given his malignancy history of DVT in the past, we have initiated heparin per protocol - Time Spent With Patient Total time spent is greater than 50% in coordination of care (as documented) at patient's floor/unit and/or counseling patient:
[2019-02-23] MEDS: Ringers Solution, Lactated 1,000 ML IVC SCH (20:01)
[2019-02-23] MEDS: *HR* Heparin 5,000 UNIT/ML VIAL SQ SCH (21:20)
[2019-02-24 04:27] LABS: Basophils % 0.6 %; Eosinophils # 0.3 K/mcL (0.0-0.6); Immature Granulocytes % 0.6 % (0-4); Lymphocytes # 1.1 K/mcL (0.6-4.6); Lymphocytes % 18.4 %; Mean Corpuscular HGB Conc 32.5 g/dL (31.6-35.5); Mean Corpuscular Hemoglobin 28.7 pg (28.0-33.3); Mean Corpuscular Volume 88.2 fL (83.0-100.0); Mean Platelet Volume 11.1 fL (9.4-12.4); Monocytes # 0.5 K/mcL (0.0-1.3); Monocytes % 8.4 %; Neutrophils # 4.2 K/mcL (1.6-8.9); Platelet Count 145 K/mcL (140-400); Red Blood Count 3.63 M/mcL (4.19-5.50); Red Cell Distribution Width 15.8 % (11.5-14.5); White Blood Count 6.2 K/mcL (4.3-11.1)
[2019-02-24 04:28] LABS: Hemoglobin 10.4 g/dL (12.9-16.9)
[2019-02-24 04:43] LABS: Alanine Aminotransferase 238 Units/L (7-52); Albumin/Globulin Ratio 1.1 (1.1-2.2); Alkaline Phosphatase 194 Units/L (34-104); Aspartate Amino Transferase 92 Units/L (13-39); BUN/Creatinine Ratio 19 (6-26); Bilirubin,Direct 2.3 mg/dL (0.0-0.2); Bilirubin,Indirect 1.2 mg/dL (0.0-1.2); Bilirubin,Total 3.5 mg/dL (0.3-1.0); Blood Urea Nitrogen 25 mg/dL (8-23); Calcium 8.7 mg/dL (8.6-10.3); Carbon Dioxide 26 mEq/L (23-29); Chloride 101 mEq/L (98-107); Globulin 2.7 g/dL (2.4-3.5); Glucose 127 mg/dL (70-105); Magnesium 1.9 mg/dL (1.6-2.6); Osmolality,Calculated 282 (280-300); Potassium 3.5 mEq/L (3.5-5.1); Sodium 133 mEq/L (136-145); Total Protein 5.7 g/dL (6.4-8.9); eGFR For African Americans > 60 (> 60); eGFR For Non-African Americans 53 (> 60)
[2019-02-24] MEDS: *HR* Heparin 5,000 UNIT/ML VIAL SQ SCH ×2 (06:18→14:54)
[2019-02-24] MEDS ORDERED: Cholecalciferol (D-3) 1,000 UNIT (25MCG) TABLET PO SCH (09:00)
[2019-02-24] MEDS: Ringers Solution, Lactated 1,000 ML IVC SCH (09:21)
--- NOTE | 2019-02-24 10:32 | Oncology Inp Consult Note ---
<Denver Evans - Last Filed: 02/24/19 19:05> Date of Encounter: 02/24/19 Time of Encounter: 11:00 Assessment and Plan (1) Metastatic cancer Status: Acute Assessment and plan: Patient has apparent metastatic cancer, which is likely pancreatic in origin given its location and distribution. Patient does have mass at the head of pancreas, in the liver, and there is lymphadenopathy in the peripancreatic region. This time, we will await pathology and plan treatment accordingly. Appropriate staging studies have been done. We will order hepatitis viral panel as the patient does have transaminitis which may be associated with liver biop sy, however this can be followed in the outpatient setting. Will also repeat Ca-19-9 and LDH. Patient does have appointment with Dr. Schmidt on Monday 02/26, which is appropriate to keep. No further recommendations. (2) Anemia Status: Acute Assessment and plan: Patient does have anemia with hemoglobin 10.4. Given previous iron studies which were done in October this is likely anemia of chronic disease versus inflammatory anemia. We will repeat iron studies as well as B12, folate, LDH and follow up in the outpatient setting when the patient has come to the cancer Center. Qualifiers: Anemia type: due to chronic kidney disease Chronic kidney disease stage: stage 3 (moderate) Qualified Code(s): N18.3 - Chronic kidney disease, stage 3 (moderate); D63.1 - Anemia in chronic kidney disease (3) CAD (coronary artery disease) Status: Acute Assessment and plan: CAD status post CABG. Stable. Qualifiers: Coronary Disease-Associated Artery/Lesion type: bypass graft [place] vs. transplanted heart: [place] heart Associated angina: without angina Qualified Code(s): I25.810 - Atherosclerosis of coronary artery bypass graft(s) without angina pectoris (4) History of kidney cancer Status: Chronic - Data of Consult Patient: new to practice Consult date: 02/24/19 Requesting Physician: Sakshi Cary Primary Care Provider: Tarsha Jacome MD - Consult Narrative Reason for consult: Pancreatic mass History of present illness: Mr. Schwartz is a 78yo man who presented to [facility] on 02/23/19 for abdominal pain with nausea and vomiting. Hematology/oncology was consulted on 02/24/19 due to new pancreatic mass with apparent metastatic disease to liver and lymph nodes which was biopsied on 02/20/19. In short, Mr. Schwartz is a 78yo man with history of CAD status post CABG, DVT, hypertension, prostate cancer status post prostatectomy and 96, right renal cancer status post nephrectomy in 2010 who presented to the hospital for abdominal pain which is acute on chronic from his PCP. His abdominal pain is primarily in his epigastric region however does have radiation to his right upper quadrant. It is about 10/10 in severity and cramping/squeezing in quality. The pain has been present for about 1.5 months. It has caused severe decrease in his oral intake because he is unable to tolerate his pain. He says that his appetite is okay, however he does have hesitancy with eating because of the severity of his pain. The patient does have recent diagnosis of large pancreatic head mass with apparent metastases to the liver and abdominal lymph nodes which were seen on CT of the abdomen. The patient was seen by Dr. Schmidt, who has attempted to stage the patient with PET/CT, and has ordered a CT guided liver biopsy that was done on 02/20/19 but is currently pending. The patient does say that he is currently having no fever, chills, sweats, however he does have dark urine and he has noticed some discoloration of skin on recent occasions. He denies any other significant symptoms. The patient does note that he has had approximately 20 pounds of weight loss since he had his CABG in October,, however it has not become more rapid recently. He does say that his symptoms have improved since arrival at the hospital. 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 T3a Nx M0, stage III. The patient had been found to have the right renal mass at [place] in December 2010. 09/27/17 PSA from September 2017 at 0.05. Patient underwent a CT imaging of the abdomen by primary care physician or abdominal pain that shows pancreatic mass measuring 5 cm or so likely metastatic lesion in the liver up to 7 cm. Patient reports that his abdominal pain is like soreness. He is taking Zofran sublingual which helps some nausea and pain. He has lost some weight around cardiac surgery and is fatigued. Past Med Surg Social Fam HX - Past Medical History Medical history: arthritis, cancer, coronary artery disease, DVT, hypertension Additional medical history: prostate cancer-removed. Kidney cancer (right)- removed. neuropathy. SLEEP APNEA Psychiatric history: no psych history - Past Surgical History Surgical History: cancer surgery, prostatectomy Additional surgical history: PROSTATE AND KIDNEY CANCER SURGERY. right hip replacement and. right leg surgery. IVC FILTER - Social History Smoking Status: Former smoker Smokeless Tobacco Status: No Alcohol use: none Drug use: none - Family History Father Living Status: Medications and Allergies Allopurinol [Zyloprim 300 MG] 300 mg PO DAILY 10/11/18 [History] Cholecalciferol (Vitamin D3) [Vitamin D3] 2,000 unit PO DAILY 10/11/18 [History] Lisinopril [Zestril] 20 mg PO QPM 10/11/18 [History] Docusate Sodium [Stool Softener] 100 mg PO DAILY 02/23/19 [History] Ondansetron [Zofran ODT] 8 mg SL Q8H PRN 02/23/19 [History] Pantoprazole Sodium [Protonix] 40 mg PO PRN PRN 02/23/19 [History] Carvedilol [Coreg] 3.125 mg PO BIDWM tablet 02/24/19 [Rx] Clopidogrel [Plavix] 75 mg PO DAILY tablet 02/24/19 [Rx] Diclofenac Sodium 1 appl TP BID PRN 02/24/19 [History] OxyCODONE Immed Rel [Roxicodone 5 MG] 10 mg PO Q6HR PRN 7 Days #56 tablet 02/24/19 [Rx] Polyethylene Glycol 3350 [MiraLAX] 17 gm PO DAILY #527 gm 02/24/19 [Rx] Allergy/AdvReac Type Severity Reaction Status Date / Time acetaminophen [From Percocet] Allergy Rash Verified 02/24/19 08:11 adhesive tape Allergy Rash Verified 02/24/19 08:11 Diclofenac [From Arthrotec] Allergy swelling Verified 02/24/19 08:11 diltiazem Allergy See Verified 02/24/19 08:11 Comments Latex, Natural Rubber Allergy SEE COMMENT Verified 02/24/19 08:11 misoprostol [From Arthrotec] Allergy swelling Verified 02/24/19 08:11 nabumetone Allergy See Verified 02/24/19 08:11 Comments NSAIDS (Non-Steroidal Allergy See Verified 02/24/19 08:11 Anti-Inflamma Comments oxycodone [From Percocet] Allergy Rash Verified 02/24/19 08:11 Review of systems: Constitutional: Denies fevers, chills. Admits to weight loss, generalized fatigue Head/Neck: Denies WINKLER, neck stiffness EENT: Denies vision changes/blurriness, rhinorrhea, congestion, sore throat CVS: Denies chest pain, palpitations, QUINTEROS, orthopnea, edema, PND Pulm: Denies SOB, cough, sputum, hemoptysis, wheezing GI: Denies diarrhea, constipation, melena, hematemasis. Admits to abdominal pain, nausea, vomiting, : Denies dysuria, increased frequency, urgency, hematuria Heme: Denies ease of bleeding or bruising MSK: Denies joint pain, limited ROM Skin: Denies rashes, ulcers. Admits to color changes, specifically yellowing Neuro: Denies WINKLER, paresthesias, focal deficits, ataxia Oncology - Exam - Constitutional Exam: Gen: Vitals noted. No acute distress. Eyes: anicteric sclerae, moist conjunctivae; no lid-lag; Pupils equal and reactive to light HENT: Atraumatic; oropharynx clear with moist mucous membranes and no mucosal ulcerations; normal hard and soft palate Neck: Trachea midline; supple, no thyromegaly or lymphadenopathy Cardiac: RRR, no murmur, +S1/S2 Pulmonary: CTA bilaterally, no wheezes, rales or rhonchi, equal chest expansion Abdomen: Firm, distended abdomen with tenderness to palpation in the upper quadrants. Tympanic to percussion, no peritoneal signs. MSK: ROM intact, no joint swelling noted Extremities: no BLE edema, nontender calf, no cyanosis or clubbing Skin: Normal temperature, turgor and texture; no rash, ulcers or subcutaneous nodules Neuro: moves all extremities, no focal deficits. Psych: Appropriate mood and behavior. A&Ox3 Consult Discharge Plan - Plan Referrals: Tarsha Jacome MD [Primary Care Provider] - Prescriptions: Polyethylene Glycol 3350 [MiraLAX] 17 gm PO DAILY #527 gm OxyCODONE Immed Rel [Roxicodone 5 MG] 10 mg PO Q6HR PRN 7 Days #56 tablet PRN Reason: Severe Pain <Guerda Ferrari - Last Filed: 02/25/19 17:41> Date of Encounter: 02/24/19 Time of Encounter: 18:00 - Data of Consult Requesting Physician: Sakshi Cary Primary Care Provider: Tarsha Jacome MD Inpatient Charges Provider: Dr. Lindsey Ferrari Consult - Inpatient: [id number] - Attending Attestation I examined this patient and my medical decision-making was reviewed with the Advanced Practice Nurse. I agree with the documented findings, disposition and treatment plan as described except to the extent set forth below. New diagnosis likely metastatic pancreatic cancer. Ca19 9 elevated around 190. PET scan 02/08/2019 showed mildly hypermetabolic mediastinal adenopathy could be reactive from granulomatous disease. No lung nodules. PET scan showed hypermetabolic pass the body and tail of pancreas. Liver metastasis. Liver biopsy done on 02/20/2019 and results pending Patient admitted with epigastric pain. If necessary can consider celiac plexus block He has acute transaminitis since 02/23/2019. ALT elevated around 90 and AST around 60. Total bilirubin when up to 6.5 02/23/2019 with direct bilirubin 3.5. His bilirubin was normal in the past. Will proceed with viral hepatitis panel. We will continue to monitor liver enzymes. He has seen Dr. Schmidt as an outpatient. Treatment recommendation after liver biopsy results His history of renal cell carcinoma and prostate cancer in the past as mentioned
[2019-02-24 15:00] VITALS: BP 103/58
[2019-02-24] MEDS ORDERED: Lisinopril 20 MG TABLET PO SCH (18:00)
[2019-02-24 18:03] LABS: % Iron Saturation 6 % (20-55); Iron 17 mcg/dL (65-175); Lactate Dehydrogenase 263 Units/L (140-271); Transferrin 189 mg/dL (203-362)
[2019-02-24 18:22] LABS: Ferritin 160 ng/mL (20-250)
[2019-02-24 18:27] LABS: Folate 18.7 ng/mL (3.0-16.0); Vitamin B12 1017 pg/mL (250-1100)
--- NOTE | 2019-02-24 18:46 | Discharge Summary ---
- NOTES TO OUTPATIENT PROVIDER Notes to Outpatient Provider: Posthospital discharge for metastatic pancreatic cancer. Patient has a appointment on Wednesday with oncologist Orders not resulted at time of discharge: Pending orders 02/24/19 17:28 Cancer Antigen-GI (CA 19-9) Routine Date of Encounter: 02/24/19 Time of Encounter: 18:43 - Discharge Diagnosis (1) Metastatic cancer Priority: Primary Status: Acute Assessment and Plan: He was seen by the oncologist here at the hospital recommended outpatient follow-up. He has an appointment on 02/27/2019 CT scan is suggestive of metastatic cancer with increase in size and number of liver lesions, is status post liver biopsy 02/20/2019- biopsy results still pending, patient is status post PET CT 01/19/2019 which revealed intensely hypermetabolic mass in the body and tail of the pancreas with multiple hyper metabolic metastatic lesions throughout the liver. Patient already been worked up for possible pancreatic cancer established with the [facility] oncologist- consult pending. Goals of care discussion was brought up with the patient and his with advanced directive. He will like to remain full code, and interested in chemotherapy. (2) Hyperbilirubinemia Priority: Secondary Status: Acute Assessment and Plan: Likely due to metastatic lesions in the liver, we will trend LFTs (3) Elevated transaminase level Priority: Secondary Status: Acute Assessment and Plan: Likely secondary to metastatic lesions in the liver will trend LFTs (4) Acute kidney injury Priority: Secondary Status: Acute Assessment and Plan: History of CKD, serum creatinine January 2019 was 1.2, today of present admission is 1.57 we will start gentle hydration which improved serum creatinine to 1.31 at discharge (5) Abdominal pain Priority: Primary Status: Acute Assessment and Plan: Likely secondary to metastatic liver lesion given his elevated LFTs we will refrain from acetaminophen products. We will treat with oxycodone and may use breakthrough hydromorphone as needed if unable to tolerate oral narcotics. 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 transplanted heart: [place] heart Associated angina: without angina Qualified Code(s): I25.810 - Atherosclerosis of coronary artery bypass graft(s) without angina pectoris (7) Acute hyponatremia Priority: Secondary Status: Acute Assessment and Plan: Likely secondary to poor oral intake was 133 he is euvolemic anticipated to improve as his oral intake improves, serum sodium stable at 133 at discharge is following up with oncology (8) Hypertension Priority: Secondary Status: Acute Assessment and Plan: He was normotensive during his hospital stay Qualifiers: Hypertension type: essential hypertension Qualified Code(s): I10 - Essential (primary) hypertension (9) DVT prophylaxis Priority: Secondary Status: Acute Assessment and Plan: High risk for DVTs given 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 Schwartz is a 78 year old male was hospitalized for abdominal pain workup revealed metastatic pancreatic cancer. His pain was treated with oral narcotic. He was seen by the oncologist and he recommended outpatient continued follow- up. Patient had an appointment for Wednesday, February 27, 2019. Discharge discussed with: patient, nurse, road consultant - Time Spent with Patient Total time spent providing and/or coordinating discharge services:35 mins Specific discharge activities: Please make sure you adhere to treatment plan per oncology, and keep only a follow-up appointment - Discharge Medications Prescriptions: New Carvedilol [Coreg] 3.125 mg PO BIDWM tablet Polyethylene Glycol 3350 [MiraLAX] 17 gm PO DAILY #527 gm Clopidogrel [Plavix] 75 mg PO DAILY tablet OxyCODONE Immed Rel [Roxicodone 5 MG] 10 mg PO Q6HR PRN 7 Days #56 tablet PRN Reason: Severe Pain Continued Allopurinol [Zyloprim 300 MG] 300 mg PO DAILY Cholecalciferol (Vitamin D3) [Vitamin D3] 2,000 unit PO DAILY Lisinopril [Zestril] 20 mg PO QPM Ondansetron [Zofran ODT] 8 mg SL Q8H PRN PRN Reason: Nausea Pantoprazole Sodium [Protonix] 40 mg PO PRN PRN PRN Reason: GERD Docusate Sodium [Stool Softener] 100 mg PO DAILY Diclofenac Sodium 1 appl TP BID PRN PRN Reason: Pain Discontinued Amiloride/Hydrochlorothiazide [Amiloride HCl-Hctz 5-50 mg Tab] 1 tab PO DAILY Home Medications: Allopurinol [Zyloprim 300 MG] 300 mg PO DAILY 10/11/18 [History] Cholecalciferol (Vitamin D3) [Vitamin D3] 2,000 unit PO DAILY 10/11/18 [History] Lisinopril [Zestril] 20 mg PO QPM 10/11/18 [History] Docusate Sodium [Stool Softener] 100 mg PO DAILY 02/23/19 [History] Ondansetron [Zofran ODT] 8 mg SL Q8H PRN 02/23/19 [History] Pantoprazole Sodium [Protonix] 40 mg PO PRN PRN 02/23/19 [History] Carvedilol [Coreg] 3.125 mg PO BIDWM tablet 02/24/19 [Rx] Clopidogrel [Plavix] 75 mg PO DAILY tablet 02/24/19 [Rx] Diclofenac Sodium 1 appl TP BID PRN 02/24/19 [History] OxyCODONE Immed Rel [Roxicodone 5 MG] 10 mg PO Q6HR PRN 7 Days #56 tablet 02/24/19 [Rx] Polyethylene Glycol 3350 [MiraLAX] 17 gm PO DAILY #527 gm 02/24/19 [Rx] Allergies/Adverse Reactions: Allergy/AdvReac Type Severity Reaction Status Date / Time acetaminophen [From Percocet] Allergy Rash Verified 02/24/19 08:11 adhesive tape Allergy Rash Verified 02/24/19 08:11 Diclofenac [From Arthrotec] Allergy swelling Verified 02/24/19 08:11 diltiazem Allergy See Verified 02/24/19 08:11 Comments Latex, Natural Rubber Allergy SEE COMMENT Verified 02/24/19 08:11 misoprostol [From Arthrotec] Allergy swelling Verified 02/24/19 08:11 nabumetone Allergy See Verified 02/24/19 08:11 Comments NSAIDS (Non-Steroidal Allergy See Verified 02/24/19 08:11 Anti-Inflamma Comments oxycodone [From Percocet] Allergy Rash Verified 02/24/19 08:11 Date of admission: 02/24/19 15:23 Primary care physician: Tarsha Jacome MD Consults: 02/23/19 18:27 Consult to Oncology [CONS] Routine Consulting Provider: [facility] Reason for Consult: established patient with metastatic pancreatic cancer Time Notified: 16:45 Call Completed: Yes Discharging clinician: Sakshi Cary - Constitutional Vitals: Temp Pulse Resp BP Pulse Ox 98.0 F 81 16 103/58 97 02/24/19 14:54 02/24/19 14:54 02/24/19 14:54 02/24/19 14:54 02/24/19 14:54 Exam: GEN: NAD, A&O x 3, Pleasant and conversant SKIN: [place] warm acyanotic, improving skin jaundice noted from history HEART: RRR, grade 3/6 systolic murmur noted LUNGS: CTA no wheeze or crackles, overall non labored ABDOMEN; Soft, non tender or distended, BS x 4 normactive EXT: No LE edema, Pedal pulses 1+, radial pulses 2+ PSYCH: Mood and affect is appropriate - Patient Status Disposition: Home, Self-Care Condition: Fair Functional capacity at discharge: independent ambulation Overall status at discharge: patient is back to baseline - Discharge Instructions Follow Up With: Tarsha Jacome MD [Primary Care Provider] - - Diet and Activity Activity: resume usual activities as tolerated Diet: low fat, low cholesterol, low salt diet
[2019-02-24 19:32] LABS: Hepatitis B Surface Antigen Nonreactive (Nonreactive)
[2019-02-24 20:02] LABS: Hepatitis C Virus Antibody Nonreactive (Nonreactive)
[2019-02-24 20:03] LABS: Hepatitis B Core IgM Nonreactive (Nonreactive)
[2019-02-24 20:05] LABS: Hepatitis A Antibody IgM Nonreactive (Nonreactive)
== END 2019-02-24 19:26 | disposition home or self-care (01) | DRG 436 ==
LOC: SUATTDRO → EMEROOARM 12:26 → 3ANU 12:26 → SUATTDRO 16:38 → 3ANU 17:00
PROVIDERS: ADMIT Pharmacist; ATTEND Pharmacist

== ENCOUNTER 2019-04-15 14:36 | Observation (INO) ==
[2019-04-15] MEDS ORDERED: Isovue-370 500 ML BOTTLE IVP ONE (15:07)
[2019-04-15 16:06] LABS: Hematocrit 28.2 % (37.5-50.1); Hemoglobin 9.1 g/dL (12.9-16.9); Mean Corpuscular HGB Conc 32.3 g/dL (31.6-35.5); Mean Corpuscular Volume 93.1 fL (83.0-100.0); Mean Platelet Volume 10.2 fL (9.4-12.4); Nucleated Red Blood Cells 0.2 /100 WBC (0); Platelet Count 136 K/mcL (140-400); Red Blood Count 3.03 M/mcL (4.19-5.50); Red Cell Distribution Width 19.2 % (11.5-14.5); White Blood Count 14.8 K/mcL (4.3-11.1)
[2019-04-15 16:24] LABS: BUN/Creatinine Ratio 28 (6-26); Blood Urea Nitrogen 31 mg/dL (8-23); Calcium 8.6 mg/dL (8.6-10.3); Carbon Dioxide 27 mEq/L (23-29); Chloride 103 mEq/L (98-107); Glucose 156 mg/dL (70-105); Osmolality,Calculated 290 (280-300); Potassium 3.1 mEq/L (3.5-5.1); Sodium 135 mEq/L (136-145); eGFR For African Americans > 60 (> 60); eGFR For Non-African Americans > 60 (> 60)
[2019-04-15 16:42] LABS: Lymphocytes # 2.1 K/mcL (0.6-4.6); Monocytes # 0.4 K/mcL (0.0-1.3); Neutrophils # 11.8 K/mcL (1.6-8.9); Platelet Estimate Slight Decrease (Normal); Toxic Granulation Present (Not Present)
[2019-04-15] MEDS ORDERED: Ampicillin/Sulbactam 3,000 MG in 0.9 % Sodium Chloride Mini Bag 100 ML IVPB ONE (17:21)
[2019-04-15] MEDS ORDERED: Ondansetron 4 MG/2 ML VIAL IVP PRN (17:47)
[2019-04-15] MEDS ORDERED: *HR* OxyCODONE Immed Rel 5 MG TABLET PO PRN (17:47)
[2019-04-15] MEDS ORDERED: traMADol 50 MG TABLET PO PRN (17:47)
[2019-04-15] MEDS ORDERED: Acetaminophen 325 MG TABLET PO PRN (17:47)
[2019-04-15] MEDS ORDERED: Naloxone 0.4 MG/ML INJ IVP PRN (17:47)
[2019-04-15] MEDS ORDERED: Methyl Salicylate/Menthol 28 GM TUBE TP PRN (18:04)
[2019-04-15] MEDS: *HR* Heparin 5,000 UNIT/ML VIAL SQ SCH (19:01)
[2019-04-16] MEDS: Ampicillin/Sulbactam 1,500 MG in 0.9 % Sodium Chloride Mini Bag 100 ML IVPB SCH ×3 (00:26→12:13)
[2019-04-16 04:58] LABS: Bilirubin,Urine Negative (Negative); Blood,Urine Negative (Negative); Clarity,Urine Clear (Clear); Color,Urine Yellow (Yellow); Glucose,Urine (UA) Normal (Normal); Ketones,Urine Negative (Negative); Leukocyte Esterase,Urine Negative (Negative); Nitrite,Urine Negative (Negative); PH,Urine 6.5 pH Units (5.0-8.0); Protein,Urine Negative (Neg-Trace); Specific Gravity,Urine 1.028 (1.010-1.025); Urobilinogen,Urine Normal (Normal)
[2019-04-16 04:59] LABS: Hematocrit 28.5 % (37.5-50.1); Hemoglobin 9.2 g/dL (12.9-16.9); Mean Corpuscular HGB Conc 32.3 g/dL (31.6-35.5); Mean Corpuscular Volume 92.8 fL (83.0-100.0); Mean Platelet Volume 10.4 fL (9.4-12.4); Nucleated Red Blood Cells 0.2 /100 WBC (0); Platelet Count 158 K/mcL (140-400); Red Blood Count 3.07 M/mcL (4.19-5.50); Red Cell Distribution Width 19.4 % (11.5-14.5); White Blood Count 13.6 K/mcL (4.3-11.1)
[2019-04-16 05:20] LABS: BUN/Creatinine Ratio 22 (6-26); Blood Urea Nitrogen 25 mg/dL (8-23); Calcium 8.7 mg/dL (8.6-10.3); Carbon Dioxide 25 mEq/L (23-29); Chloride 102 mEq/L (98-107); Glucose 121 mg/dL (70-105); Osmolality,Calculated 288 (280-300); Potassium 3.8 mEq/L (3.5-5.1); Sodium 136 mEq/L (136-145); eGFR For African Americans > 60 (> 60); eGFR For Non-African Americans > 60 (> 60)
[2019-04-16 06:02] LABS: Lymphocytes # 3.8 K/mcL (0.6-4.6); Monocytes # 0.3 K/mcL (0.0-1.3); Neutrophils # 9.3 K/mcL (1.6-8.9); Platelet Estimate Normal (Normal)
[2019-04-16] MEDS: *HR* Heparin 5,000 UNIT/ML VIAL SQ SCH (06:35)
[2019-04-16] MEDS ORDERED: AMILoride/HCTZ 5-50mg 1 EACH TABLET PO SCH (09:00)
[2019-04-16] MEDS ORDERED: Cholecalciferol (D-3) 1,000 UNIT (25MCG) TABLET PO SCH (09:00)
[2019-04-16 10:30] VITALS: BP 109/60
== END 2019-04-16 14:30 | disposition home or self-care (01) ==
LOC: EMEROOARM 14:36 → 3ANU 14:36 → SUATTDRO 18:03 → 3ANU 18:48
PROVIDERS: ADMIT Internal Medicine; ATTEND Internal Medicine

== ENCOUNTER 2019-10-13 15:04 | Inpatient (IN) ==
[2019-10-13 15:47] LABS: Basophils % 0.3 %; Eosinophils % 0.7 %; Hematocrit 34.2 % (37.5-50.1); Hemoglobin 11.9 g/dL (12.9-16.9); Immature Granulocytes % 0.7 % (0-4); Lymphocytes # 0.9 K/mcL (0.6-4.6); Lymphocytes % 15.1 %; Mean Corpuscular HGB Conc 34.8 g/dL (31.6-35.5); Mean Corpuscular Hemoglobin 32.7 pg (28.0-33.3); Mean Platelet Volume 9.3 fL (9.4-12.4); Monocytes # 0.5 K/mcL (0.0-1.3); Monocytes % 8.2 %; Neutrophils # 4.5 K/mcL (1.6-8.9); Platelet Count 134 K/mcL (140-400); Red Blood Count 3.64 M/mcL (4.19-5.50); Red Cell Distribution Width 13.1 % (11.5-14.5)
[2019-10-13 16:07] LABS: Alanine Aminotransferase 23 Units/L (7-52); Albumin 3.8 g/dL (3.5-5.7); Albumin/Globulin Ratio 1.4 (1.1-2.2); Alkaline Phosphatase 120 Units/L (34-104); Aspartate Amino Transferase 38 Units/L (13-39); BUN/Creatinine Ratio 20 (6-26); Bilirubin,Total 0.3 mg/dL (0.3-1.0); Blood Urea Nitrogen 22 mg/dL (8-23); Calcium 9.2 mg/dL (8.6-10.3); Carbon Dioxide 23 mEq/L (23-29); Chloride 84 mEq/L (98-107); Globulin 2.8 g/dL (2.4-3.5); Glucose 164 mg/dL (70-105); Magnesium 1.6 mg/dL (1.6-2.6); Osmolality,Calculated 247 (280-300); Phosphorous 3.4 mg/dL (2.7-4.5); Potassium 3.7 mEq/L (3.5-5.1); Sodium 115 mEq/L (136-145); Total Protein 6.6 g/dL (6.4-8.9); eGFR For African Americans > 60 (> 60); eGFR For Non-African Americans > 60 (> 60)
[2019-10-13 16:31] LABS: Sodium, Urine 35.8 mEq/L
[2019-10-13 16:34] LABS: Bilirubin,Urine Negative (Negative); Blood,Urine Negative (Negative); Clarity,Urine Clear (Clear); Color,Urine Yellow (Yellow); Glucose,Urine (UA) Normal (Normal); Ketones,Urine Negative (Negative); Leukocyte Esterase,Urine Negative (Negative); Nitrite,Urine Negative (Negative); PH,Urine 6.5 pH Units (5.0-8.0); Protein,Urine Negative (Neg-Trace); Specific Gravity,Urine 1.019 (1.010-1.025); Urobilinogen,Urine Normal (Normal)
[2019-10-13] MEDS ORDERED: Ondansetron 4 MG/2 ML VIAL IVP PRN (16:50)
[2019-10-13] MEDS ORDERED: Naloxone 0.4 MG/ML INJ IVP PRN (16:50)
[2019-10-13] MEDS ORDERED: Acetaminophen 325 MG TABLET PO PRN (16:50)
[2019-10-13] MEDS ORDERED: 0.9 % Sodium Chloride 1,000 ML IVC SCH ×2 (17:00→19:53)
[2019-10-13] MEDS: *HR* OxyCODONE Immed Rel 5 MG TABLET PO PRN (20:00)
[2019-10-14 00:14] LABS: Bilirubin,Urine Negative (Negative); Blood,Urine Negative (Negative); Clarity,Urine Clear (Clear); Color,Urine Yellow (Yellow); Glucose,Urine (UA) Normal (Normal); Ketones,Urine Negative (Negative); Leukocyte Esterase,Urine Negative (Negative); Nitrite,Urine Negative (Negative); PH,Urine 6.5 pH Units (5.0-8.0); Protein,Urine Negative (Neg-Trace); Specific Gravity,Urine 1.012 (1.010-1.025); Urobilinogen,Urine Normal (Normal)
[2019-10-14] MEDS: 0.9 % Sodium Chloride 1,000 ML IVC SCH ×3 (00:28→17:07)
[2019-10-14 04:55] LABS: Mean Corpuscular HGB Conc 34.4 g/dL (31.6-35.5); Mean Corpuscular Hemoglobin 32.2 pg (28.0-33.3); Mean Corpuscular Volume 93.6 fL (83.0-100.0); Mean Platelet Volume 9.6 fL (9.4-12.4); Platelet Count 115 K/mcL (140-400); Red Blood Count 3.42 M/mcL (4.19-5.50); White Blood Count 4.1 K/mcL (4.3-11.1)
[2019-10-14 05:21] LABS: BUN/Creatinine Ratio 19 (6-26); Blood Urea Nitrogen 19 mg/dL (8-23); Calcium 8.9 mg/dL (8.6-10.3); Carbon Dioxide 26 mEq/L (23-29); Chloride 87 mEq/L (98-107); Glucose 104 mg/dL (70-105); Magnesium 1.6 mg/dL (1.6-2.6); Osmolality,Calculated 253 (280-300); Phosphorous 3.7 mg/dL (2.7-4.5); Potassium 4.2 mEq/L (3.5-5.1); Sodium 120 mEq/L (136-145); eGFR For African Americans > 60 (> 60); eGFR For Non-African Americans > 60 (> 60)
[2019-10-14 05:34] LABS: Estimated Average Glucose 143 mg/dl
[2019-10-14] MEDS: *HR* Enoxaparin 40 MG/0.4 ML SYRINGE SQ SCH (06:13)
[2019-10-14] MEDS: allopurinoL 300 MG TABLET PO SCH (08:45)
[2019-10-14] MEDS ORDERED: polyethylene glycoL 3350 17 GM POWD.PACK PO PRN (09:28)
[2019-10-14] MEDS: *HR* OxyCODONE Immed Rel 5 MG TABLET PO PRN (17:05)
[2019-10-15 02:05] LABS: BUN/Creatinine Ratio 25 (6-26); Blood Urea Nitrogen 22 mg/dL (8-23); Calcium 8.5 mg/dL (8.6-10.3); Carbon Dioxide 25 mEq/L (23-29); Chloride 95 mEq/L (98-107); Glucose 126 mg/dL (70-105); Osmolality,Calculated 271 (280-300); Potassium 4.2 mEq/L (3.5-5.1); Sodium 128 mEq/L (136-145); eGFR For African Americans > 60 (> 60); eGFR For Non-African Americans > 60 (> 60)
[2019-10-15] MEDS: *HR* Enoxaparin 40 MG/0.4 ML SYRINGE SQ SCH (06:33)
[2019-10-15] MEDS: allopurinoL 300 MG TABLET PO SCH (08:04)
[2019-10-15 16:08] VITALS: BP 147/61
== END 2019-10-15 17:47 | disposition home or self-care (01) | DRG 644 ==
LOC: EMEROOARM 15:04 → 3NENU 15:04 → SUATTDRO 17:29 → 3NENU 17:40
PROVIDERS: ADMIT Internal Medicine; ATTEND Internal Medicine

== ENCOUNTER 2019-11-06 11:36 | Inpatient (IN) ==
[2019-11-06] MEDS ORDERED: cefTRIAXone 2,000 MG in Water for inj. (sterile) 20 ML IVP ONE (12:26)
[2019-11-06] MEDS ORDERED: Azithromycin 500 MG in 0.9 % Sodium Chloride 250 ML IVPB ONE (12:27)
[2019-11-06] MEDS ORDERED: Cefepime HCl 2,000 MG in Water for inj. (sterile) 20 ML IVP STA (12:28)
[2019-11-06 12:45] LABS: Nucleated Red Blood Cells 1.4 /100 WBC (0)
[2019-11-06 12:48] LABS: Hematocrit 26.7 % (37.5-50.1); Hemoglobin 8.4 g/dL (12.9-16.9); Immature Platelets 12.6 % (1.1-6.1); Lymphocytes # 0.9 K/mcL (0.6-4.6); Mean Corpuscular HGB Conc 31.5 g/dL (31.6-35.5); Mean Corpuscular Hemoglobin 30.3 pg (28.0-33.3); Mean Corpuscular Volume 96.4 fL (83.0-100.0); Red Blood Count 2.77 M/mcL (4.19-5.50); Red Cell Distribution Width 15.1 % (11.5-14.5); White Blood Count 2.2 K/mcL (4.3-11.1)
[2019-11-06 12:55] LABS: INR 1.4; Prothrombin Time 16.1 Seconds (9.4-12.1)
[2019-11-06 12:57] LABS: Activated Partial Thrombo Time 29.1 Seconds (26.0-36.0)
[2019-11-06 13:11] LABS: Procalcitonin 0.35 ng/mL (0.00-0.15)
[2019-11-06 13:14] LABS: Platelet Count 11 K/mcL (140-400)
[2019-11-06 13:17] LABS: BUN/Creatinine Ratio 15 (6-26); Blood Urea Nitrogen 17 mg/dL (8-23); C-Reactive Protein 109 mg/L (Less than 10); Carbon Dioxide 26 mEq/L (23-29); Chloride 101 mEq/L (98-107); Eosinophils # 0.1 K/mcL (0.0-0.6); Glucose 115 mg/dL (70-105); Monocytes # 0.1 K/mcL (0.0-1.3); Neutrophils # 1.1 K/mcL (1.6-8.9); Osmolality,Calculated 284 (280-300); Potassium 3.7 mEq/L (3.5-5.1); Sodium 136 mEq/L (136-145); Troponin I 0.16 ng/mL (< 0.04); eGFR For African Americans > 60 (> 60); eGFR For Non-African Americans > 60 (> 60)
[2019-11-06 13:18] LABS: Platelet Estimate Marked Decrease (Normal)
[2019-11-06] MEDS ORDERED: Isovue-370 500 ML BOTTLE IVP ONE (13:20)
[2019-11-06 13:27] LABS: Ferritin 508 ng/mL (20-250)
[2019-11-06] MEDS ORDERED: Furosemide 40 MG in 0.9 % Sodium Chloride 50 ML IV ONE (14:21)
[2019-11-06] MEDS ORDERED: Ondansetron ODT 4 MG TAB.RAPDIS SL PRN (17:18)
[2019-11-06] MEDS ORDERED: Naloxone 0.4 MG/ML INJ IVP PRN (17:18)
[2019-11-06] MEDS ORDERED: cefTRIAXone 2,000 MG in Water for inj. (sterile) 20 ML IVP SCH ×2 (18:00→21:00)
[2019-11-06] MEDS ORDERED: Nitroglycerin 0.4 MG TAB.SUBL SL PRN (18:05)
[2019-11-06 19:39] LABS: Folate 13.8 ng/mL (3.0-16.0)
[2019-11-06 20:11] LABS: Hemoglobin 8.2 g/dL (12.9-16.9)
[2019-11-06 20:12] LABS: Hematocrit 25.6 % (37.5-50.1); Immature Platelets 14.1 % (1.1-6.1); Mean Corpuscular Hemoglobin 30.8 pg (28.0-33.3); Mean Corpuscular Volume 96.2 fL (83.0-100.0); Mean Platelet Volume 12.2 fL (9.4-12.4); Red Blood Count 2.66 M/mcL (4.19-5.50); Red Cell Distribution Width 15.2 % (11.5-14.5); White Blood Count 2.3 K/mcL (4.3-11.1)
[2019-11-06 20:31] LABS: Magnesium 1.1 mg/dL (1.6-2.6)
[2019-11-06 20:36] LABS: Troponin I 0.15 ng/mL (< 0.04)
[2019-11-06] MEDS: Doxycycline 100 MG CAPSULE PO SCH (21:04)
[2019-11-06] MEDS: polyethylene glycoL 3350 17 GM POWD.PACK PO SCH (21:04)
[2019-11-06] MEDS: *HR* OxyCODONE Immed Rel 5 MG TABLET PO PRN (21:05)
[2019-11-07] MEDS ORDERED: Acetaminophen 325 MG TABLET PO ONE (03:11)
[2019-11-07 03:53] LABS: Hematocrit 25.6 % (37.5-50.1); Hemoglobin 8.2 g/dL (12.9-16.9); Red Cell Distribution Width 15.3 % (11.5-14.5)
[2019-11-07 03:54] LABS: Immature Platelets 14.2 % (1.1-6.1); Mean Corpuscular Hemoglobin 30.9 pg (28.0-33.3); Mean Corpuscular Volume 96.6 fL (83.0-100.0); Red Blood Count 2.65 M/mcL (4.19-5.50); White Blood Count 2.4 K/mcL (4.3-11.1)
[2019-11-07 03:58] LABS: Platelet Count 12 K/mcL (140-400)
[2019-11-07 04:09] LABS: BUN/Creatinine Ratio 13 (6-26); Blood Urea Nitrogen 16 mg/dL (8-23); Calcium 8.5 mg/dL (8.6-10.3); Carbon Dioxide 26 mEq/L (23-29); Chloride 101 mEq/L (98-107); Glucose 97 mg/dL (70-105); Osmolality,Calculated 283 (280-300); Potassium 3.8 mEq/L (3.5-5.1); Sodium 136 mEq/L (136-145); eGFR For African Americans > 60 (> 60); eGFR For Non-African Americans 57 (> 60)
[2019-11-07] MEDS: *HR* OxyCODONE Immed Rel 5 MG TABLET PO PRN ×2 (05:08→17:00)
[2019-11-07] MEDS: Furosemide 40 MG/4 ML VIAL IVP SCH (07:54)
[2019-11-07] MEDS: Doxycycline 100 MG CAPSULE PO SCH (07:55)
[2019-11-07] MEDS: AMILoride/HCTZ 5-50mg 1 EACH TABLET PO SCH (07:55)
[2019-11-07] MEDS: Cholecalciferol (D-3) 1,000 UNIT (25MCG) TABLET PO SCH (07:55)
[2019-11-07] MEDS: allopurinoL 300 MG TABLET PO SCH (07:55)
[2019-11-07] MEDS: polyethylene glycoL 3350 17 GM POWD.PACK PO SCH (07:55)
[2019-11-07] MEDS ORDERED: Aminoglycoside Consult 1 EACH MC ONE (08:12)
[2019-11-07] MEDS ORDERED: polyethylene glycoL 3350 17 GM POWD.PACK PO SCH (09:00)
[2019-11-07] MEDS ORDERED: Azithromycin 500 MG in 0.9 % Sodium Chloride 250 ML IVPB SCH (09:00)
[2019-11-07] MEDS: Aspirin 81 MG TAB.CHEW PO SCH (20:18)
[2019-11-07] MEDS ORDERED: Acetaminophen 325 MG TABLET PO PRN (21:57)
[2019-11-08 03:26] LABS: Hemoglobin 7.8 g/dL (12.9-16.9); Red Cell Distribution Width 15.5 % (11.5-14.5)
[2019-11-08 03:28] LABS: Basophils % 0.4 %; Eosinophils # 0.1 K/mcL (0.0-0.6); Eosinophils % 4.7 %; Hematocrit 24.3 % (37.5-50.1); Immature Granulocytes % 3.6 % (0-4); Immature Platelets 14.5 % (1.1-6.1); Lymphocytes # 1.2 K/mcL (0.6-4.6); Lymphocytes % 42.9 %; Mean Corpuscular HGB Conc 32.1 g/dL (31.6-35.5); Mean Corpuscular Hemoglobin 31.6 pg (28.0-33.3); Mean Corpuscular Volume 98.4 fL (83.0-100.0); Mean Platelet Volume 13.6 fL (9.4-12.4); Monocytes # 0.4 K/mcL (0.0-1.3); Monocytes % 14.2 %; Nucleated Red Blood Cells 0.7 /100 WBC (0); Red Blood Count 2.47 M/mcL (4.19-5.50); Segmented Neutrophils % 34.2 %; White Blood Count 2.8 K/mcL (4.3-11.1)
[2019-11-08 03:33] LABS: Platelet Count 14 K/mcL (140-400)
[2019-11-08 03:46] LABS: Calcium 8.8 mg/dL (8.6-10.3); Potassium 3.4 mEq/L (3.5-5.1)
[2019-11-08 04:00] LABS: Anisocytosis 1+ (Not Present); Platelet Estimate Marked Decrease (Normal)
[2019-11-08] MEDS: *HR* OxyCODONE Immed Rel 5 MG TABLET PO PRN (04:05)
[2019-11-08] MEDS: Aspirin 81 MG TAB.CHEW PO SCH (08:34)
[2019-11-08] MEDS: Furosemide 40 MG/4 ML VIAL IVP SCH (08:34)
[2019-11-08] MEDS: AMILoride/HCTZ 5-50mg 1 EACH TABLET PO SCH (08:34)
[2019-11-08] MEDS: Cholecalciferol (D-3) 1,000 UNIT (25MCG) TABLET PO SCH (08:34)
[2019-11-08] MEDS: allopurinoL 300 MG TABLET PO SCH (08:34)
[2019-11-08] MEDS: polyethylene glycoL 3350 17 GM POWD.PACK PO SCH (08:35)
[2019-11-08] MEDS ORDERED: Albumin 25% 25gram/100mL 25 GM/100 ML IV.SOLN IVPB ONE (11:52)
[2019-11-08] MEDS: Silvasorb 44.4 ML TUBE TP SCH (15:35)
[2019-11-08] MEDS: Cyanocobalamin (B-12) 1,000 MCG/ML VIAL IM SCH (16:30)
[2019-11-09] MEDS: *HR* OxyCODONE Immed Rel 5 MG TABLET PO PRN (00:46)
[2019-11-09 03:10] LABS: Hematocrit 24.3 % (37.5-50.1); Hemoglobin 7.9 g/dL (12.9-16.9); Immature Platelets 13.2 % (1.1-6.1); Mean Corpuscular HGB Conc 32.5 g/dL (31.6-35.5); Mean Corpuscular Hemoglobin 31.5 pg (28.0-33.3); Mean Corpuscular Volume 96.8 fL (83.0-100.0); Red Blood Count 2.51 M/mcL (4.19-5.50)
[2019-11-09 03:13] LABS: Platelet Count 16 K/mcL (140-400)
[2019-11-09 03:23] LABS: BUN/Creatinine Ratio 14 (6-26); Blood Urea Nitrogen 17 mg/dL (8-23); Calcium 9.1 mg/dL (8.6-10.3); Carbon Dioxide 27 mEq/L (23-29); Chloride 92 mEq/L (98-107); Glucose 93 mg/dL (70-105); Osmolality,Calculated 273 (280-300); Potassium 3.6 mEq/L (3.5-5.1); Sodium 131 mEq/L (136-145); eGFR For African Americans > 60 (> 60); eGFR For Non-African Americans 56 (> 60)
[2019-11-09] MEDS ORDERED: Furosemide 40 MG/4 ML VIAL IVP ONE (08:18)
[2019-11-09] MEDS: Cholecalciferol (D-3) 1,000 UNIT (25MCG) TABLET PO SCH (08:54)
[2019-11-09] MEDS: polyethylene glycoL 3350 17 GM POWD.PACK PO SCH (08:55)
[2019-11-09] MEDS: allopurinoL 300 MG TABLET PO SCH (08:55)
[2019-11-09] MEDS: Aspirin 81 MG TAB.CHEW PO SCH (08:55)
[2019-11-09] MEDS: Cyanocobalamin (B-12) 1,000 MCG/ML VIAL IM SCH (08:56)
[2019-11-09] MEDS ORDERED: Albumin 25% 25gram/100mL 25 GM/100 ML IV.SOLN IVPB ONE (14:29)
[2019-11-09] MEDS: Silvasorb 44.4 ML TUBE TP SCH (20:37)
[2019-11-10 02:45] LABS: Hematocrit 25.9 % (37.5-50.1); Hemoglobin 8.3 g/dL (12.9-16.9); Immature Platelets 15.4 % (1.1-6.1); Mean Corpuscular Hemoglobin 30.9 pg (28.0-33.3); Mean Corpuscular Volume 96.3 fL (83.0-100.0); Red Blood Count 2.69 M/mcL (4.19-5.50); Red Cell Distribution Width 15.3 % (11.5-14.5); White Blood Count 3.5 K/mcL (4.3-11.1)
[2019-11-10 02:47] LABS: Platelet Count 19 K/mcL (140-400)
[2019-11-10 03:05] LABS: BUN/Creatinine Ratio 14 (6-26); Blood Urea Nitrogen 18 mg/dL (8-23); Calcium 9.9 mg/dL (8.6-10.3); Carbon Dioxide 29 mEq/L (23-29); Chloride 91 mEq/L (98-107); Glucose 93 mg/dL (70-105); Osmolality,Calculated 274 (280-300); Potassium 3.7 mEq/L (3.5-5.1); Sodium 131 mEq/L (136-145); eGFR For African Americans > 60 (> 60); eGFR For Non-African Americans 56 (> 60)
[2019-11-10] MEDS: Cholecalciferol (D-3) 1,000 UNIT (25MCG) TABLET PO SCH (09:07)
[2019-11-10] MEDS: allopurinoL 300 MG TABLET PO SCH (09:07)
[2019-11-10] MEDS: Aspirin 81 MG TAB.CHEW PO SCH (09:07)
[2019-11-10] MEDS: polyethylene glycoL 3350 17 GM POWD.PACK PO SCH (09:08)
[2019-11-10] MEDS: Cyanocobalamin (B-12) 1,000 MCG/ML VIAL IM SCH (09:08)
[2019-11-10] MEDS: Silvasorb 44.4 ML TUBE TP SCH (09:09)
[2019-11-10 11:49] VITALS: BP 144/66
== END 2019-11-10 14:00 | disposition home health service (06) | DRG 280 ==
LOC: 2NENU 11:36 → EMEROOARM 11:36 → SUATTDRO 15:27 → 2NENU 16:45 → SUATTDRO 11-07 10:10 → 2ANU 11-08 21:38
PROVIDERS: ADMIT Family Medicine; ATTEND Internal Medicine